=== PATIENT | male | born 1995 | race African-American/Black ===

== ENCOUNTER 2020-01-07 20:31 | Emergency (ER) | payer OTHER, SELFPAY ==
[2020-01-07] MEDS ORDERED: Acetaminophen 500 MG TAB ONE ×2 (21:21→21:22)
== END 2020-01-07 22:10 | disposition home or self-care (01) ==
LOC: ERS 20:31
DX: J11.1 Influenza due to unidentified influenza virus with other respiratory manifestations (principal)
CPT/HCPCS: 87081; 87430; 87804; 99283